=== PATIENT | male | born 1995 | race Caucasian/White ===

== ENCOUNTER 2019-10-09 09:44 | Emergency (ER) | payer SELFPAY ==
[~2019-10-09] VITALS: Ht 167.6 cm; Wt 90.7 kg
== END 2019-10-09 11:59 | disposition home or self-care (01) ==
LOC: ED 09:44
DX: B34.9 Viral infection, unspecified (principal); R19.7 Diarrhea, unspecified

== ENCOUNTER 2019-10-17 19:32 | Emergency (ER) | payer SELFPAY ==
[~2019-10-17] VITALS: Ht 167.6 cm; Wt 90.7 kg
[2019-10-17] MEDS ORDERED: PROVENTIL HFA6.7 GM INH (20:41)
[2019-10-17] MEDS ORDERED: PREDNISONE20 M1 PO (20:41)
[2019-10-17] MEDS ORDERED: TESSALON PERLE100 M1 PO (20:41)
== END 2019-10-17 21:18 | disposition home or self-care (01) ==
LOC: ED 19:32
DX: J40 Bronchitis, not specified as acute or chronic (principal)

== ENCOUNTER 2019-11-12 08:46 | Emergency (ER) | payer SELFPAY ==
[~2019-11-12] VITALS: Ht 167.6 cm; Wt 90.7 kg
[~2019-11-12 08:46] MED LIST: PREDNISONE20 M1 PO; PROVENTIL HFA6.7 GM INH; TESSALON PERLE100 M1 PO
[2019-11-12] MEDS ORDERED: TESSALON PERLE100 M1 PO (12:21)
[2019-11-12] MEDS ORDERED: PROVENTIL HFA6.7 GM INH (12:21)
[2019-11-12] MEDS ORDERED: PREDNISONE20 M1 PO (12:21)
== END 2019-11-12 12:30 | disposition home or self-care (01) ==
LOC: ED 08:46
DX: J40 Bronchitis, not specified as acute or chronic (principal); Z79.899 Other long term (current) drug therapy

== ENCOUNTER 2020-06-28 07:01 | Emergency (ER) | payer SELFPAY ==
[~2020-06-28] VITALS: Ht 167.6 cm; Wt 117.9 kg
[2020-06-28] MEDS ORDERED: PREDNISONE50 MG PO (08:18)
== END 2020-06-28 08:37 | disposition home or self-care (01) ==
LOC: ED 07:01
DX: H10.9 Unspecified conjunctivitis (principal); J30.2 Other seasonal allergic rhinitis; Z79.899 Other long term (current) drug therapy

== ENCOUNTER 2021-01-23 09:58 | Emergency (ER) | payer SELFPAY ==
[~2021-01-23] VITALS: Ht 167.6 cm; Wt 127.0 kg
[~2021-01-23 09:58] MED LIST changes: +PREDNISONE50 MG PO
[2021-01-23 10:39] LABS: MEAN CELL VOLUME 86.7 fl (80.0-94.0); MEAN CORPUSCULAR HGB 30.3 pg (27.0-31.0); MEAN CORPUSCULAR HGB CONC 34.9 g/dl (33.0-37.0); MEAN PLATELET VOLUME 9.4 fl (9.6-12.3); PLATELET COUNT AUTOMATED 360 10*3/uL (130-400); RED BLOOD COUNT 5.42 10*6/uL (4.50-5.90); RED CELL DISTRI WIDTH 12.4 % (0-14.5); WHITE BLOOD COUNT 14.2 10*3/uL (4.8-10.8)
[2021-01-23 10:51] LABS: BILIRUBIN Negative (Negative); BLOOD Negative (Negative); CLARITY Cloudy (Clear); COLOR Dark Yellow (Yellow); GLUCOSE Negative (Negative); KETONE Trace (Negative); LEUKO ESTERASE 1+ (Negative); NITRITE Negative (Negative); PH 5.5 (4.5-8.0); SPECIFIC GRAVITY >= 1.030 (1.001-1.030)
[2021-01-23 10:59] LABS: BASOPHILS 1 % (0-1); TOTAL CELLS COUNTED 100 #CELLS
[2021-01-23 11:00] LABS: PLATELET SUFFICIENCY NORMAL (NORMAL)
[2021-01-23 11:01] LABS: BACTERIA 1+; MUCOUS 3+
[2021-01-23 11:18] LABS: ALBUMIN 3.8 gm/dl (3.1-4.5); ALKALINE PHOSPHATASE 111 U/L (45-117); BUN 17 mg/dl (7-24); CHLORIDE 108 mmol/L (98-107); CREATININE 1.01 mg/dL (0.70-1.30); POTASSIUM 3.3 mmol/L (3.5-5.1); SGOT/AST 15 IU/L (3-35); SGPT/ALT 29 U/L (12-78); SODIUM 138 mmol/L (136-145); TOTAL PROTEIN 7.6 gm/dL (6.4-8.2)
== END 2021-01-23 12:15 | disposition home or self-care (01) ==
LOC: ED 09:58
PROVIDERS: Emergency Medicine
DX: R11.2 Nausea with vomiting, unspecified (principal); R19.7 Diarrhea, unspecified; F95.2 Tourette's disorder; Z79.899 Other long term (current) drug therapy

== ENCOUNTER 2021-01-28 17:54 | Emergency (ER) | payer SELFPAY ==
[~2021-01-28] VITALS: Ht 167.6 cm; Wt 127.0 kg
[2021-01-28] MEDS ORDERED: CEPHALEXIN500 M1 PO (21:08)
[2021-01-28] MEDS ORDERED: PREDNISONE20 M1 PO (22:00)
== END 2021-01-28 22:04 | disposition home or self-care (01) ==
LOC: ED 17:54
DX: T88.1XXA Other complications following immunization, not elsewhere classified, initial encounter (principal); Z20.822 Contact with and (suspected) exposure to COVID-19; Z79.899 Other long term (current) drug therapy; Y92.89 Other specified places as the place of occurrence of the external cause

== ENCOUNTER 2021-07-07 10:28 | Emergency (ER) | payer SELFPAY ==
[~2021-07-07] VITALS: Ht 167.6 cm; Wt 113.4 kg
[~2021-07-07 10:28] MED LIST changes: +CEPHALEXIN500 M1 PO
== END 2021-07-07 13:20 | disposition left against medical advice (07) ==
LOC: ED 10:28
DX: R11.10 Vomiting, unspecified (principal); R51.9 Headache, unspecified; R19.7 Diarrhea, unspecified; Z53.21 Procedure and treatment not carried out due to patient leaving prior to being seen by health care provider

== ENCOUNTER 2022-02-27 17:49 | Emergency (ER) | payer SELFPAY ==
[~2022-02-27] VITALS: Wt 122.5 kg
[2022-02-27] MEDS ORDERED: AUGMENTIN 875-875 MG PO (18:35)
== END 2022-02-27 18:38 | disposition home or self-care (01) ==
LOC: ED 17:49
DX: K13.70 Unspecified lesions of oral mucosa (principal)

== ENCOUNTER 2022-04-19 09:05 | Emergency (ER) | payer OTHER ==
[~2022-04-19] VITALS: Ht 167.6 cm; Wt 113.4 kg
[~2022-04-19 09:05] MED LIST changes: +AUGMENTIN 875-875 MG PO
== END 2022-04-19 12:03 | disposition home or self-care (01) ==
LOC: ED 09:05
DX: S01.81XA Laceration without foreign body of other part of head, initial encounter (principal); Z79.899 Other long term (current) drug therapy; V49.88XA Car occupant (driver) (passenger) injured in other specified transport accidents, initial encounter; Y93.89 Activity, other specified; Y92.413 State road as the place of occurrence of the external cause; Y99.9 Unspecified external cause status

== ENCOUNTER 2022-04-27 17:37 | Emergency (ER) | payer SELFPAY | END 2022-04-27 18:19 | disposition home or self-care (01) | LOC: ED 17:37 | DX: S01.81XD Laceration without foreign body of other part of head, subsequent encounter (principal); Z79.899 Other long term (current) drug therapy; Z79.2 Long term (current) use of antibiotics; X58.XXXD Exposure to other specified factors, subsequent encounter ==

== ENCOUNTER 2022-09-07 23:41 | Emergency (ER) | payer SELFPAY ==
[~2022-09-07] VITALS: Ht 167.6 cm; Wt 117.9 kg
[2022-09-07] MEDS ORDERED: TOPAMAX25 M3 PO (23:59)
[2022-09-08 00:37] LABS: BASO # 0.1 10*3/uL (0.0-0.1); BASO % 0.6 % (0.0-1.0); EOS % 7.9 % (1.0-4.0); HEMATOCRIT 43.4 % (42.0-52.0); LYMPH # 3.6 10*3/uL (1.3-4.4); LYMPH % 27.7 % (27.0-41.0); MEAN CELL VOLUME 86.3 fl (80.0-94.0); MEAN CORPUSCULAR HGB CONC 35.9 g/dl (33.0-37.0); MEAN PLATELET VOLUME 9.4 fl (9.6-12.3); MONO % 7.5 % (3.0-9.0); NEUT # 7.3 10*3/uL (2.3-7.9); NEUT % 55.9 % (47.0-73.0); PLATELET COUNT AUTOMATED 361 10*3/uL (130-400); RED BLOOD COUNT 5.03 10*6/uL (4.50-5.90); RED CELL DISTRI WIDTH 12.2 % (0-14.5)
[2022-09-08 00:55] LABS: ALKALINE PHOSPHATASE 102 U/L (46-116); BUN 7 mg/dl (9-23); CHLORIDE 106 mmol/L (98-107); CREATININE 0.76 mg/dL (0.70-1.30); LIPASE 28 U/L (12-53); POTASSIUM 3.4 mmol/L (3.4-5.1); SGPT/ALT 20 U/L (10-49); SODIUM 137 mmol/L (136-145)
[2022-09-08 00:56] LABS: TOTAL PROTEIN 7.1 gm/dL (6.0-8.0)
[2022-09-08] MEDS ORDERED: CIPRO500 MG PO (01:42)
[2022-09-08] MEDS ORDERED: METRONIDAZOLE500 M1 PO (01:42)
== END 2022-09-08 01:46 | disposition home or self-care (01) ==
LOC: ED 23:41
PROVIDERS: Emergency Medicine
DX: K52.9 Noninfective gastroenteritis and colitis, unspecified (principal); Z79.899 Other long term (current) drug therapy